=== PATIENT | female | born 1965 | race Caucasian/White ===

== ENCOUNTER → 2018-01-27 15:39 | Outpatient (CLI) | payer MEDICAID, SELFPAY ==
[2018-01-27 19:58] LABS: Free Thyroxine Index 2.8 ug/dL (5.93-13.13); T4 (Thyroxine) 8.7 ug/dl (4.7-13.3); Thyroid Stimulating Hormone 2.76 uIU/ml (0.358-3.740); Triiodothryronine (T3) Uptake 32 % (31-39)
== END ==
PROVIDERS: Visit Provider Internal Medicine Adolescent Medicine
DX: E03.9 Hypothyroidism, unspecified (principal)
CPT/HCPCS: 36415; 84436; 84443; 84479

== ENCOUNTER 2018-02-18 13:30 | Outpatient (RCR) | payer MEDICAID, SELFPAY ==
--- NOTE | 2018-02-01 14:32 | HMH.PTOPEV ---
Rehab Outpatient Evaluation Rehab OP Evaluation Start: 02/01/18 14:24 Freq: Status: Active Protocol: Document 02/01/18 14:24 SALVATORE (Rec: 02/01/18 14:32 SALVATORE [id number]) Electronically Signed By Artemio Espinoza, PT 02/01/18 14:24 Outpatient Therapy Subjective History Subjective History Pt reports h/o chronic L knee pain for ~1 yr. Pt reports injuring L knee by strikig it against a chair, then 'it buckled'. Pt reports recurrent L knee buckling since initial insult, and chronic swelling. PMH;COPD Chief Complaint Pain Stiff Clicks Swelling Catches/Locks Gives out/Unstable Weakness Symptom Type Ache Sharp Dull Symptoms Relieved By Rest/Positioning Ice OTC Meds Symptoms Aggravated By Standing Physical Activity Walking Prior Functional Limitations Housework Standing Walking Current Functional Limitations Housework Standing Squatting Walking Stairs Bending/Stooping Symptom Description Constant and Continuous Level of pain today (0-10) 8 Pain scale - at its best (0-10) 9 Pain scale - at its worst (0-10) 9 Hip/Knee Eval Gait Observation General Gait Pattern Observation Antalgic Gait Wide Based Gait Assistive Device Assistive Devices None / NA Palpation Tenderness left Knee Palpation Finding Tenderness Knee Palpation Overall Comment medial and lateral jt line 3/4 MMT bilateral Hip Flexion Strength Grade 4- Good- Hip Abduction Strength Grade 4- Good- Hip Adduction Strength Grade 4- Good- Hip Extension Strength Grade 4- Good- Hip External Rotation Strength Grade 4- Good- Hip Internal Rotation Strength Grade 4- Good- Knee Extension Strength Grade 4 Good Knee Flexion Strength Grade 4 Good ROM right Knee Flexion Active Range of Motion ( 0-115 degrees) left Knee Flexion Active Range of Motion ( 0-95 degrees)
== END 2018-02-18 13:31 | disposition home or self-care (01) ==
LOC: PT 13:30
PROVIDERS: PCP Internal Medicine Adolescent Medicine; Visit Provider Internal Medicine Adolescent Medicine
DX: M25.562 Pain in left knee (principal)
CPT/HCPCS: 97010; 97014; 97035; 97110; G0283

== ENCOUNTER → 2018-02-23 16:00 | Outpatient (CLI) | payer MEDICAID, SELFPAY ==
--- NOTE | 2018-02-23 16:07 | XR_ITS ---
XR chest 2V HISTORY: ITS.REASON: ASTHMA,COPD ORDERING PHYSICIAN: Tani Alvarez MD PATIENT AGE: 52 years COMPARISON: 07/31/2017 FINDINGS: The cardiomediastinal silhouette and pulmonary vascularity are within normal limits. The lungs are clear without infiltrates, suspicious nodules, or pleural effusions. There is pleural thickening in the upper lung zones bilaterally and may be related to prominent pleural fat have a somewhat similar appearance on previous exam. No acute bony anomalies. IMPRESSION: No acute finding
== END ==
PROVIDERS: PCP Internal Medicine Adolescent Medicine; Visit Provider Orthopaedic Surgery
DX: Z01.818 Encounter for other preprocedural examination (principal); S52.572A Other intraarticular fracture of lower end of left radius, initial encounter for closed fracture; S52.612A Displaced fracture of left ulna styloid process, initial encounter for closed fracture
CPT/HCPCS: 71046; 93005

== ENCOUNTER → 2018-03-17 11:34 | Outpatient (CLI) | payer MEDICAID, SELFPAY ==
--- NOTE | 2018-03-17 11:36 | XR_ITS ---
XR wrist LT min 3V HISTORY ITS.REASON: s/p LEFT orif distal radius dos 03/02/18 ORDERING PHYSICIAN: Tani Alvarez MD PATIENT AGE: 52 years Comparison: 02/21/2018 FINDINGS: Status post ORIF displaced distal radial fracture. There is an anterior bone plate present with good alignment of the fracture fragments. Mildly displaced ulnar styloid avulsion fracture once again noted. Study is obtained through cast. IMPRESSION: Good alignment status post ORIF distal radial fracture
== END ==
PROVIDERS: PCP Internal Medicine Adolescent Medicine; Visit Provider Orthopaedic Surgery
DX: Z48.89 Encounter for other specified surgical aftercare (principal)
CPT/HCPCS: 73110

== ENCOUNTER → 2018-04-14 10:23 | Outpatient (CLI) | payer MEDICAID, SELFPAY ==
--- NOTE | 2018-04-14 10:25 | XR_ITS ---
XR wrist LT min 3V HISTORY follow-up fracture/surgery ITS.REASON: XRAYS OUT OF CAST/ follow up from sx dos 03/02 ORDERING PHYSICIAN: Tani Alvarez MD PATIENT AGE: 52 years Comparison: 03/17/2018 FINDINGS: The cast has been removed. Bohler bone plate is present stabilizing comminuted distal radial fracture which is in good alignment. Avulsion of the ulnar styloid once again noted. Mild Dianna changes are present at the radiocarpal joint. IMPRESSION: Prior ORIF comminuted distal radial fracture with good alignment
== END ==
PROVIDERS: PCP Internal Medicine Adolescent Medicine; Visit Provider Orthopaedic Surgery
DX: Z09 Encounter for follow-up examination after completed treatment for conditions other than malignant neoplasm (principal); S52.502A Unspecified fracture of the lower end of left radius, initial encounter for closed fracture; S52.612A Displaced fracture of left ulna styloid process, initial encounter for closed fracture
CPT/HCPCS: 73110

== ENCOUNTER 2018-04-14 11:37 | Outpatient (RCR) | payer MEDICAID, SELFPAY | END 2018-04-15 08:27 | disposition home or self-care (01) | LOC: OT 11:37 | PROVIDERS: PCP Internal Medicine Adolescent Medicine; Visit Provider Orthopaedic Surgery | DX: S62.109A Fracture of unspecified carpal bone, unspecified wrist, initial encounter for closed fracture (principal) | CPT/HCPCS: 97760 ==

== ENCOUNTER → 2018-05-26 08:50 | Outpatient (CLI) | payer MEDICAID, SELFPAY ==
--- NOTE | 2018-05-26 08:52 | XR_ITS ---
XR wrist LT min 3V Ordering Physician: Tani Alvarez MD Patient Age: 53 years: Female HISTORY: ITS.REASON: sp ORIF LEFT distal radius sx 03/02/18 TECHNIQUE: 3 views left wrist COMPARISON :04/14/2018 FINDINGS Bone plate applied to the anterior aspect of the distal radius with ORIF of the comminuted fracture distal radius. This bone plate secured by With numerous screws entering anteriorly.Providing fixation. The slight anterior positioning of the distal radial fracture fragment noted on lateral view. This feature appears similar if not slightly slightly more apparent on today's projection The fracture of the ulnar styloid is unchanged. Upper normal width at the scapholunate joint. Mild narrowing at the radial carpal joint reflecting early degenerative changes here. IMPRESSION: Previous ORIF distal radial fracture. As above.
== END ==
PROVIDERS: PCP Internal Medicine Adolescent Medicine; Visit Provider Orthopaedic Surgery
DX: Z09 Encounter for follow-up examination after completed treatment for conditions other than malignant neoplasm (principal)
CPT/HCPCS: 73110

== ENCOUNTER 2018-06-11 13:00 | Outpatient (RCR) | payer MEDICAID, SELFPAY ==
--- NOTE | 2018-04-22 15:26 | HMH.OTOPEV ---
OT Inpatient Evaluation Rehab OT Outpatient Eval Start: 04/22/18 15:11 Freq: Status: Active Protocol: Document 04/22/18 15:12 RMARSHALL (Rec: 04/22/18 15[id number] Electronically Signed By Aleksander Caro OT 04/22/18 15:12 Outpatient Therapy Subjective History Subjective History Pt is a 52 year old female who reports to therapy for initial evaluation to left wrist. Pt reports she fell sometime in march resulting in a distal radius fracture. The fracture required an ORIF on 03/12/18. Pt reports she does not have much pain at the wrist unless she uses it. Pt does demonstrate with decreased AROM and strength at left wrist. Pt will continue to be seen twice a week in order to address these deficits. 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 Coordination Symptom Type Ache Throb Sharp Dull Tingling Shooting Symptoms Relieved By Nothing Symptoms Aggravated By Physical Activity Lifting Prior Functional Limitations None Current Functional Limitations Reaching Lifting Housework Dressing Driving Sleeping Recreation Activity Symptom Description Activity Dependent Level of pain today (0-10) 0 Pain scale - at its best (0-10) 0 Pain scale - at its worst (0-10) 5 Wrist/Hand Eval Wrist Range of Motion Wrist Limitations of Range of Motion Muscle Weakness Pain Wrist Extension Active Range of Motion ( 36 degrees degrees) Wrist Flexion Active Range of Motion ( 38 degrees degrees) Wrist Radial Deviation Active Range of 14 degrees Motion (degrees) Wrist Ulnar Deviation Active Range of 14 degrees Motion (degrees) Wrist Manual Muscle Testing Left Wrist Extension Strength Grade 4- Good- Wrist Flexion Strength Grade 4- Good- Wrist R
== END 2018-06-11 13:01 | disposition home or self-care (01) ==
LOC: OT 13:00
PROVIDERS: PCP Internal Medicine Adolescent Medicine; Visit Provider Orthopaedic Surgery
DX: S52.502A Unspecified fracture of the lower end of left radius, initial encounter for closed fracture (principal); S52.612A Displaced fracture of left ulna styloid process, initial encounter for closed fracture
CPT/HCPCS: 97014; 97110; 97140; 97166; G0283

== ENCOUNTER → 2018-07-20 10:06 | Outpatient (CLI) | payer MEDICAID, SELFPAY ==
[2018-07-20 10:26] LABS: Basophils # 0.1 K/mm3 (0-0.2); Basophils % 0.8 % (0.1-2.0); Eosinophils # 0.2 K/mm3 (0.0-0.4); Eosinophils % 2.4 % (0.1-12.0); Hematocrit 43.2 % (37.0-47.0); Lymphocytes # 2.4 K/mm3 (0.7-4.5); Lymphocytes % 31.3 K/mm3 (10-50); Mean Corpuscular HGB Conc 32.4 g/dL (31.8-35.4); Mean Corpuscular Hemoglobin 30.5 pg (27.0-31.2); Mean Corpuscular Volume 94.1 fl (81-99); Mean Platelet Volume 10.7 fl (7.4-10.4); Monocytes # 0.5 K/mm3 (0.1-1.0); Monocytes % 6.4 % (1.7-9.3); Neutrophils # 4.6 K/mm3 (1.8-7.8); Platelet Count 186 K/mm3 (142-424); Red Blood Count 4.59 M/mm3 (4.20-5.40); Red Cell Distribution Width 13.2 % (11.5-17.5); White Blood Count 7.8 K/mm3 (4.8-10.8)
[2018-07-20 11:07] LABS: Hemoglobin A1C 5.6 % (0.0-7.0)
[2018-07-20 12:02] LABS: Alanine Aminotransferase 33 U/L (12-78); Albumin Level 3.7 gm/dL (3.4-5.0); Albumin/Globulin Ratio 1.2 (1.1-1.8); Alkaline Phosphatase 73 U/L (46-116); Anion Gap 12.4 mEq/L (5-15); Aspartate Amino Transferase 12 U/L (15-37); Bilirubin,Total 0.5 mg/dL (0.2-1.0); Blood Urea Nitrogen 19 mg/dL (7-18); Calcium 8.9 mg/dL (8.5-10.1); Carbon Dioxide 25 mmol/L (21.0-32.0); Chloride 109 mmol/L (98-107); Chol/HDL Ratio 3.9 (1-3.5); Cholesterol 174 mg/dL (140-200); Estimated Glomerular Filt Rate 75 ml/min (>60); GFR (African American) 91 ML/MIN (>60); Globulin 3.2 gm/dl (1.3-3.2); Glucose 91 mg/dL (74-106); HDL Cholesterol 45 mg/dL (29-89); LDL Cholesterol 100 mg/dL (0-130); Potassium 4.4 mmoL/L (3.5-5.1); Sodium 142 mmol/L (136-145); Thyroid Stimulating Hormone 1.91 uIU/ml (0.358-3.740); Total Protein,Serum 6.9 gm/dL (6.4-8.2); Triglycerides 147 mg/dL (30-200); VLDL Cholesterol 29 mg/dL (0-40)
== END ==
PROVIDERS: Visit Provider Psychiatry & Neurology Psychiatry
DX: F31.70 Bipolar disorder, currently in remission, most recent episode unspecified (principal)
CPT/HCPCS: 36415; 80053; 80061; 83036; 84443; 85025

== ENCOUNTER → 2018-07-30 14:38 | Outpatient (CLI) | payer MEDICAID, SELFPAY ==
--- NOTE | 2018-07-30 14:42 | XR_ITS ---
XR forearm LT 2V HISTORY: ITS.REASON: LT WRIST PAIN ORDERING PHYSICIAN: Gerson Saul MD PATIENT AGE: 53 years COMPARISON: None FINDINGS: There has been prior ORIF of the distal radial fracture with good alignment. There is an old ununited fracture of the ulnar styloid. No acute fracture or dislocation. No lytic or blastic change. IMPRESSION: Old distal radial and ulnar fractures status post ORIF distal radial fracture with good alignment. No acute finding
--- NOTE | 2018-07-30 14:42 | XR_ITS ---
XR wrist LT min 3V HISTORY ITS.REASON: LT WRIST PAIN ORDERING PHYSICIAN: Gerson Saul MD PATIENT AGE: 53 years Comparison: 05/26/2018 FINDINGS: There has been prior ORIF of the distal radius with an anterior bone plate present. There is no fracture of the ulnar styloid process. There is a faint lucency through the mid aspect of the navicular which could be related to nondisplaced fracture. CT may confirm. There is mild widening of the scapholunate space which may be seen with medicine stability. No other significant anomalies are evident. There is good alignment of the radial fracture. IMPRESSION: 1. Good alignment status post ORIF distal radial fracture. 2. Faint lucency in the mid aspect of the navicular which could be due to a nondisplaced fracture may be confirmed with CT. 3. Mild widening of the scapholunate space which may indicate ligamentous instability
== END ==
PROVIDERS: PCP Internal Medicine Adolescent Medicine; Visit Provider Internal Medicine Adolescent Medicine
DX: M25.532 Pain in left wrist (principal)
CPT/HCPCS: 73090; 73110

== ENCOUNTER → 2018-09-01 13:49 | Outpatient (CLI) | payer MEDICAID, SELFPAY ==
--- NOTE | 2018-09-01 13:51 | CT_ITS ---
CT wrist LT wo con HISTORY left wrist pain, prior fracture of the distal radius, possible scaphoid fracture on recent radiograph ITS.REASON: possible wrist fracture ORDERING PHYSICIAN: Tani Alvarez MD PATIENT AGE: 53 years Comparison: 07/30/2018 TECHNIQUE: Axial images are obtained without contrast. Sagittal and coronal reformatted images are reviewed as well. All CT scans at the facility use one or more dose reduction, viz: automated exposure control, ma/kV adjustment per patient size (including targeted exams where dose is matched to indication, i.e. head), or iterative reconstruction technique. FINDINGS: There is an anterior bone plate at the distal radius stabilizing an old distal radial fracture which is in good alignment. There was a question of a scaphoid fracture on recent radiograph. A scaphoid fracture is not identified. There is widening however of the scapholunate joint space suggesting disruption of the scapholunate ligament. There are osteoarthritic changes of the radiocarpal joint with a defect within the central aspect of the articular surface of the distal radius measuring approximately 5 mm. There is good alignment of the distal radius with no evidence of nonunion of the old radial fracture. There is an old fracture of the base of the ulnar styloid with incomplete bony union. IMPRESSION: 1. Prior ORIF distal radius with good alignment with a cortical defect involving the articular surface of the central aspect of the distal radius. 2. No evidence of scaphoid fracture 3. Widening of the scapholunate space suggesting injury to the scapholunate ligament. IMPRESSION:
== END ==
PROVIDERS: PCP Internal Medicine Adolescent Medicine; Visit Provider Orthopaedic Surgery
DX: S62.109A Fracture of unspecified carpal bone, unspecified wrist, initial encounter for closed fracture (principal)
CPT/HCPCS: 73200